=== PATIENT | female | born 1975 | race Caucasian/White ===

== ENCOUNTER 2025-04-09 14:34 | Emergency (ER) | payer MEDICAID ==
[~2025-04-09] VITALS: Ht 170.2 cm; Wt 70.5 kg
--- NOTE | 2025-04-09 14:47 | Physician Documentation ---
History of Present Illness Stated Complaint: ABD PAIN HPI 49-year-old female reporting several days of a right-sided rib pain for the last will four days. Has a history of smoking, denies any urinary symptoms Day of Onset: April 09, 2025 Medication Reconciliation Allergies: Coded Allergies: No Known Allergies (Unverified , 04/09/25) Review of Systems All Other Systems at this time: Reviewed and Negative ROS As stated above in the HPI, otherwise all systems are reviewed and negative. Physical Exam Physical Exam General: Alert, no apparent distress. Respiratory: Lungs clear, no respiratory distress. Chest: Tender to the right intercostals Neurologic: Oriented x4. Psychiatric: Normal mood and affect. Skin: Normal color, warm and dry. No edema, no ecchymosis. Medical Decision Making Findings Received multiple medications her laboratory values were reassuring. Reports overall improved symptoms was requesting to be discharged at this time Differential Dx:Considerations: Include: AAA, -Complete, - Incomplete, -Inevitable, -Missed, -Threatened, Abruptio placentae, Angina/SD, Aortic dissection, Appendicitis, Bowel obstruction, Cholangitis, Cholelithasis, Constipation, Diverticular disease, Esophageal rupture, Esophagitis, Gastritis/PUD, Gastroenteritis, GI hemorrhage, Hernia, Hepatitis, Inflammatory BD, Ischemic bowel, Ovarian cyst/torsion, Pancreatitis, PID, Porphyria, Trauma, intraabdominal, Urinary obstruction, Urinary tract infec tion, Urolithiasis, Other Departure Disposition: 01 HOME / SELF CARE / HOMELESS Impression: Primary Impression: Abdominal pain Condition: Improved Discharge Instructions: Flank Pain, Adult, [id number] Referrals: NO PRIMARY CARE PROVIDER (PCP) Signature Scribe Signature: g Attestation: The note accurately reflects work and decisions made by me.Caleb Ndiaye - LEXIS 04/09/25 17:24 CALEB NDIAYE NP April 09, 2025 14:47
[2025-04-09 15:40] LABS: URINE HCG NEGATIVE (NEG)
[2025-04-09 15:40] LABS: BASOPHILS % (AUTO) 0.4 % (0-1); EOSINOPHILS # (AUTO) 0.1 X10'3 (0-0.9); EOSINOPHILS % (AUTO) 1.9 % (0-6); HEMATOCRIT 44.2 % (35.0-45.0); HEMOGLOBIN 15.3 g/dl (12.0-16.0); LYMPHOCYTES # (AUTO) 1.4 X10'3 (1.1-4.8); LYMPHOCYTES % (AUTO) 21.1 % (21-51); MEAN CORPUSCULAR HEMOGLOBIN 31.5 PG (27.0-31.0); MEAN CORPUSCULAR HGB CONC 34.5 g/dL (33.0-36.5); MEAN CORPUSCULAR VOLUME 91.3 FL (78-98); MEAN PLATELET VOLUME 6.7 FL (7.4-10.4); MONOCYTES # (AUTO) 0.7 X10'3 (0-0.9); MONOCYTES % (AUTO) 10.7 % (2-12); NEUTROPHILS # (AUTO) 4.3 X10'3 (1.8-7.7); NEUTROPHILS % (AUTO) 65.9 % (42-75); PLATELET COUNT 224 X10'3 (140-440); RED BLOOD COUNT 4.84 X10'6 (4.20-5.60); RED CELL DISTRIBUTION WIDTH 12.2 % (11.5-14.5); WHITE BLOOD COUNT 6.4 X10'3 (4.5-11.0)
[2025-04-09 15:42] LABS: BILIRUBIN,URINE SMALL (Neg); CLARITY,URINE CLEAR (Clear); COLOR,URINE YELLOW (Yellow); GLUCOSE, URINE NEGATIVE (Neg); KETONES,URINE 15 mg/dl (Neg); LEUKOCYTE ESTERASE ,URINE NEGATIVE (Neg); NITRITES, URINE NEGATIVE (Neg); OCCULT BLOOD,URINE NEGATIVE (Neg); PROTEIN,URINE NEGATIVE (Neg); UROBILINOGEN,URINE 0.2 E.U/dL (0.2-1.0)
[2025-04-09 15:49] LABS: ALANINE AMINOTRANSFERASE 15 U/L (12-78); ALBUMIN 4.2 G/DL (3.4-5.0); ALBUMIN/GLOBULIN RATIO 1.4 (1.1-1.5); ALKALINE PHOSPHATASE 53 IU/L (46-116); ANION GAP 9 (8-16); ASPARTATE AMINO TRANSFERASE 17 U/L (10-37); BLOOD UREA NITROGEN 14 MG/DL (7-18); BUN/CREATININE RATIO 13.3 (10.0-20.0); CHLORIDE 104 MMOL/L (99-107); CREATININE 1.05 MG/DL (0.40-0.90); GLUCOSE 88 MG/DL (70-104); LIPASE 37 U/L (16-77); POTASSIUM 3.9 MMOL/L (3.5-5.1); SODIUM 139 MMOL/L (135-145); TOTAL CARBON DIOXIDE 26.1 MMOL/L (24-32); TOTAL PROTEIN 7.2 G/DL (6.4-8.2); eCRCL 63 ML/MIN; eGFR 56 ML/MIN
[2025-04-09 15:56] LABS: UA COLLECTION TYPE CLN CATCH MIDSTREAM
[2025-04-09] MEDS: proCHLORperazine 10 MG/2 ml inj IV ONE (16:34)
[2025-04-09] MEDS: diphenhydrAMINE 50 mg/ml inj IV ONE (16:34)
[2025-04-09] MEDS: normal saline 1000ML IV soln IVB ONE (16:34)
[2025-04-09] MEDS: haloperidol lactate 5mg/ml inj IM ONE (16:36)
[2025-04-09 17:41] VITALS: BP 114/69; PULSE 85; RESP 16; TEMP 98.6; O2SAT 98
== END 2025-04-09 17:42 | disposition home or self-care (01) ==
LOC: ER 14:35
DX: R10.84 Generalized abdominal pain (principal); R07.81 Pleurodynia
CPT/HCPCS: 36415; 80053; 81003; 81025; 83690; 85025; 96361; 96372; 96374; 96375; 99284; J0780; J1200; J1630; J7030